=== PATIENT | male | born 2000 | race African-American/Black ===

== ENCOUNTER 2025-08-01 17:18 | Emergency (ER) | payer MEDICAID ==
[~2025-08-01] VITALS: Ht 180.3 cm; Wt 73.0 kg
[2025-08-01 17:23] VITALS: BP 121/75; PULSE 92; RESP 18; TEMP 36.8; O2SAT 100
[2025-08-01] MEDS ORDERED: AMOX1TAB16 MT (21:20)
[2025-08-01] MEDS ORDERED: BO1 TP (21:20)
[2025-08-01] MEDS ORDERED: IBUP-1455 MT (21:20)
[2025-08-01] MEDS: AMOXICILLIN/POTASSIUM CLAVULANATE 875/125MG TAB PO ONE (21:36)
[2025-08-01] MEDS: ACETAMINOPHEN 500MG TABLET PO ONE (21:37)
[2025-08-01] MEDS: TETANUS, DIPHTHERIA, PERTUSSIS VAC/PF 0.5ML (>10YR OLD) IM ONE (21:38)
== END 2025-08-01 21:51 | disposition home or self-care (01) ==
LOC: ER 17:18
DX: S10.93XA Contusion of unspecified part of neck, initial encounter (principal); S09.90XA Unspecified injury of head, initial encounter; Y04.1XXA Assault by human bite, initial encounter; Y93.89 Activity, other specified; Y92.89 Other specified places as the place of occurrence of the external cause; Y99.8 Other external cause status
CPT/HCPCS: 90471; 90715; 96372; 99285